=== PATIENT | male | born 1955 | race Caucasian/White ===

== ENCOUNTER 2018-12-03 10:23 | Emergency (ER) | payer BC, OTHER ==
[2018-12-03 11:02] LABS: Absolute Lymphocytes (CBC) 2.2 K/uL (0.7-4.9); Absolute Monocytes 0.6 K/uL (0.1-1.3); Absolute Neutrophil 6.5 K/uL (1.8-8.0); Basophils % 0.7 % (0-1.3); Eosinophils % 2.1 % (0-4.4); Hematocrit 45.2 % (39.6-49.0); Lymphocytes % 22.5 % (15.3-44.8); Monocytes % 6.7 % (3.3-12.3); RBC Red Blood Cell Count 4.95 M/uL (4.33-5.43)
[2018-12-03 11:16] LABS: BUN Blood Urea Nitrogen 5 mg/dL (7-18); Bicarbonate 23 mmol/L (21-32); Glucose Level 116 mg/dL (74-106); Potassium 3.5 mmol/L (3.5-5.1); Sodium Level 134 mmol/L (136-145)
[2018-12-03 11:26] LABS: Urine Blood 1+ (NEG); Urine Glucose NEGATIVE (NEG); Urine Protein TRACE (NEG); Urine Specific Gravity 1.015 (1.005-1.030)
--- NOTE | 2018-12-03 11:33 | EDPHYS ---
Physician Documentation [facility] – [place], [place] Name: Donald Powell Age: 63 yrs Sex: Male : 1955 Arrival Date: 12/03/2018 Time: 10:25 Bed 13 Private MD: ED Physician Kwadwo Le HPI: 12/03 10:43 This 63 yrs old Male presents to ER via Unassigned with complaints of Mouth rn Problem. 10:43 This 63 yrs old Male presents to ER via Unassigned with complaints of dry rn mouth. 10:43 The patient presents with dry mouth, thirsty. The problem is located in the mouth. rn Onset: The symptoms/episode began/occurred yesterday. Duration: The symptoms are continuous. Modifying factors: The symptoms are alleviated by nothing, the symptoms are aggravated by nothing. Severity of symptoms: At their worst the symptoms were moderate, in the emergency department the symptoms are unchanged. The patient has not experienced similar symptoms in the past. Reports dry mouth, increased thirst, has been trying to drink a lot of water and can't help dry mouth, no fever, no rash/lesions, reports told recently by 2 doctors that is pre-diabetic due to A1c, has been urinating a lot due to fluids, and is worried is having diabetic problem. . Historical: - Allergies: 11:20 NKDA; aj - Home Meds: 11:20 Bystolic 10 mg Oral tab 1 tab once daily [Active]; Omeprazole Oral [Active]; aj - PMHx: 11:20 GERD; Hypertension; aj - Immunization history:: Adult Immunizations up to date. - Social history:: Smoking status: Patient/guardian denies using tobacco, Patient uses alcohol, claims drinking about a 6 pack/day. - Family history:: not pertinent. - Ebola Screening: : Patient negative for fever greater than or equal to 101.5 degrees Fahrenheit, and additional compatible Ebola Virus Disease symptoms Patient denies exposure to infectious person Patient denies travel to an Ebola-affected area in the 21 days before illness onset No symptoms or risks identified at this time. - Hospitalizations: : No recent hospitalization is reported. ROS: 10:43 Constitutional: Negative for fever, chills, and weight loss, ENT: + dry mouth, no pain rn or trouble swallowing Neck: Negative for injury, pain, and swelling, Cardiovascular: Negative for chest pain, palpitations, and edema, Respiratory: Negative for shortness of breath, cough, wheezing, and pleuritic chest pain, Abdomen/GI: + decreased appetite MS/Extremity: Negative for injury and deformity, Skin: Negative for injury, rash, and discoloration, Neuro: + generalized weakness Exam: 10:43 Constitutional: This is a well developed, well nourished patient who is awake, alert, rn and in no acute distress, a little anxious Head/Face: Normocephalic, atraumatic. Eyes: Pupils equal round and reactive to light, extra-ocular motions intact. Lids and lashes normal. Conjunctiva and sclera are non-icteric and not injected. Cornea within normal limits. Periorbital areas with no swelling, redness, or edema. ENT: mild dry MM Neck: Trachea midline, no thyromegaly or masses palpated, and no cervical lymphadenopathy. Supple, full range of motion without nuchal rigidity, or vertebral point tenderness. No Meningismus. Respiratory: No increased work of breathing, no retractions or nasal flaring. Skin: Warm, dry MS/ Extremity: Pulses equal, no cyanosis. Neurovascular intact. Full, normal range of motion. Equal circumference. Neuro: Awake and alert, GCS 15, oriented to person, place, time, and situation. Cranial nerves II-XII grossly intact. Motor strength 5/5 in all extremities. Sensory grossly intact. Cerebellar exam normal. Normal gait. Vital Signs: 10:33 BP 178 / 105; Pulse 70; Resp 16; Temp 98.9; Pulse Ox 96% ; Weight 106.59 kg; Height 6 ms ft. 1 in. (185.42 cm); Pain 0/10; 10:33 Body Mass Index 31.00 (106.59 kg, 185.42 cm) ms 10:33 PT states "Zero pain it is more of an irritation." ms MDM: 10:29 Patient medically screened. rn 11:30 Differential diagnosis: dry mouth, mild ETOH withdrawal, adverse effect of benadryl rn (taking sleep medication Zquil). Data reviewed: vital signs, nurses notes, lab test result(s), and as a result, I will discharge patient. Counseling: I had a detailed discussion with the patient and/or guardian regarding: the historical points, exam findings, and any diagnostic results supporting the discharge/admit diagnosis, lab results, the need for outpatient follow up, to return to the emergency department if symptoms worsen or persist or if there are any questions or concerns that arise at home. Response to treatment: the patient's symptoms have mildly improved after treatment, and as a result, I will discharge patient. Special discussion: I discussed with the patient/guardian in detail that at this point there is no indication for admission to the hospital. It is understood, however, that if the symptoms persist or worsen the patient needs to return immediately for re-evaluation. ED course: Counseled patient regarding ETOH cessation, careful with benadryl side effects, and OTC dry mouth products. Fasting glucose 116 here, normal renal function and no ketones. Will defer monitoring to pcp.. 12/03 10:42 Order name: CBC with Diff; Complete Time: 11:21 rn 12/03 10:42 Order name: Basic Metabolic Panel; Complete Time: 11: 12/03 10:42 Order name: Ketone, Serum; Complete Time: 11: 12/03 11:08 Order name: Urine Dipstick--Ancillary (enter results); Complete Time: 11:30 12/03 10:42 Order name: IV Start; Complete Time: 10:55 rn 12/03 10:42 Order name: Urine Dipstick-Ancillary (obtain specimen); Complete Time: 11:23 rn 12/03 10:42 Order name: Glucose Level; Complete Time: 11:23 rn Administered Medications: 11:29 Drug: Valium 5 mg Route: PO; aj 12:43 Follow up: Response: Anxiety increased aj 12:44 Follow up: Response: Anxiety decreased aj 11:30 Drug: NS 0.9% 1000 ml Route: IV; Rate: 1000 ml; Site: left forearm; aj 12:44 Follow up: Response: No adverse reaction; IV Status: Completed infusion; IV Intake: aj 1000ml Point of Care Testing: Blood Glucose: 11:22 Blood Glucose: 104 mg/dL; ms Ranges: Critical Glucose Levels:Adult <50 mg/dl or >400 mg/dl <40 mg/dl or >180 mg/dl Disposition: 12/03/18 11:32 Discharged to Home. Impression: Dry mouth, unspecified. - Condition is Stable. - Discharge Instructions: Dehydration, Adult. - Medication Reconciliation Form, Thank You Letter, Antibiotic Education, Prescription Opioid Use form. - Follow up: Private Physician; When: As needed; Reason: Recheck today's complaints, Re-evaluation by your physician. - Problem is new. - Symptoms have improved. Signatures: Dispatcher [employer] EDSumi Parks RN RN aj Nieto, Roman, MD MD rn Corrections: (The following items were deleted from the chart) 10:47 10:43 Constitutional: This is a well developed, well nourished patient who is awake, rn alert, and in no acute distress, a little anxious Head/Face: Normocephalic, atraumatic. Eyes: Pupils equal round and reactive to light, extra-ocular motions intact. Lids and lashes normal. Conjunctiva and sclera are non-icteric and not injected. Cornea within normal limits. Periorbital areas with no swelling, redness, or edema. ENT: mild dry MM Neck: Trachea midline, no thyromegaly or masses palpated, and no cervical lymphadenopathy. Supple, full range of motion without nuchal rigidity, or vertebral point tenderness. No Meningismus. Skin: Warm, dry MS/ Extremity: Pulses equal, no cyanosis. Neurovascular intact. Full, normal range of motion. Equal circumference. Neuro: Awake and alert, GCS 15, oriented to person, place, time, and situation. Cranial nerves II-XII grossly intact. Motor strength 5/5 in all extremities. Sensory grossly intact. Cerebellar exam normal. Normal gait. rn 12:45 11:32 12/03/2018 11:32 Discharged to Home. Impression: Dry mouth, unspecified. aj Condition is Stable. Forms are Medication Reconciliation Form, Thank You Letter, Antibiotic Education, Prescription Opioid Use. Follow up: Private Physician; When: As needed; Reason: Recheck today's complaints, Re-evaluation by your physician. Problem is new. Symptoms have improved. rn
--- NOTE | 2018-12-03 11:33 | ER ---
Nurse's Notes [facility] Name: Donald Powell Age: 63 yrs Sex: Male : 1955 Arrival Date: 12/03/2018 Time: 10:25 Bed 13 Private MD: Diagnosis: Dry mouth, unspecified Presentation: 12/03 11:18 Presenting complaint: Patient states: Dry mouth and excessive thirst since yesterday at aj 1600. Transition of care: patient was not received from another setting of care. Onset of symptoms was December 02, 2018. Risk Assessment: Do you want to hurt yourself or someone else? Patient reports no desire to harm self or others. Initial Sepsis Screen: Does the patient meet any 2 criteria? No. Patient's initial sepsis screen is negative. Does the patient have a suspected source of infection? No. Patient's initial sepsis screen is negative. Care prior to arrival: None. 11:18 Method Of Arrival: Ambulatory 11:18 Acuity: MIGUEL ANGEL 3 aj Triage Assessment: 11:20 General: Appears in no apparent distress. comfortable, Behavior is calm, cooperative, aj appropriate for age. Pain: Denies pain. EENT: Reports dry mouth. Neuro: Level of Consciousness is awake, alert, obeys commands, Oriented to person, place, time, situation, none. Respiratory: Airway is patent Respiratory effort is even, unlabored, Respiratory pattern is regular, symmetrical. Derm: Skin is intact, is healthy with good turgor, Skin is pink, warm \\T\\ dry. normal. Historical: - Allergies: 11:20 NKDA; aj - Home Meds: 11:20 Bystolic 10 mg Oral tab 1 tab once daily [Active]; Omeprazole Oral [Active]; aj - PMHx: 11:20 GERD; Hypertension; aj - Immunization history:: Adult Immunizations up to date. - Social history:: Smoking status: Patient/guardian denies using tobacco, Patient uses alcohol, claims drinking about a 6 pack/day. - Family history:: not pertinent. - Ebola Screening: : Patient negative for fever greater than or equal to 101.5 degrees Fahrenheit, and additional compatible Ebola Virus Disease symptoms Patient denies exposure to infectious person Patient denies travel to an Ebola-affected area in the 21 days before illness onset No symptoms or risks identified at this time. - Hospitalizations: : No recent hospitalization is reported. Vital Signs: 10:33 BP 178 / 105; Pulse 70; Resp 16; Temp 98.9; Pulse Ox 96% ; Weight 106.59 kg; Height 6 ms ft. 1 in. (185.42 cm); Pain 0/10; 10:33 Body Mass Index 31.00 (106.59 kg, 185.42 cm) ms 10:33 PT states "Zero pain it is more of an irritation." ms ED Course: 10:25 Patient arrived in ED. as 10: Kwadwo Le MD is Attending Physician. rn 10:55 Initial lab(s) drawn, by vt, sent to lab. Inserted saline lock: 20 gauge in right ms forearm, using aseptic technique. Blood collected. 11:17 Sumi Bingham RN is Primary Nurse. aj 11:19 Triage completed. aj 11:20 Arm band placed on left wrist. Patient placed in an exam room. aj 12:44 No provider procedures requiring assistance completed. IV discontinued, intact, aj bleeding controlled, No redness/swelling at site. Pressure dressing applied. Administered Medications: 11:29 Drug: Valium 5 mg Route: PO; aj 12:43 Follow up: Response: Anxiety increased aj 12:44 Follow up: Response: Anxiety decreased aj 11:30 Drug: NS 0.9% 1000 ml Route: IV; Rate: 1000 ml; Site: left forearm; aj 12:44 Follow up: Response: No adverse reaction; IV Status: Completed infusion; IV Intake: aj 1000ml Point of Care Testing: Blood Glucose: 11: Blood Glucose: 104 mg/dL; ms Ranges: Intake: 12:44 IV: 1000ml; Total: 1000ml. aj Outcome: 11:32 Discharge ordered by . rn 12:45 Patient left the ED. aj Signatures: Sumi Bingham RN RN aj Martinez, Amelia as Solis, Maria ms Kwadwo Le MD MD rn
[2018-12-03] MEDS ORDERED: NA CHLORIDE 0.9% 1,000 ML ONE (11:37)
[2018-12-03] MEDS ORDERED: DIAZEPAM 5 MG TABLET ONE (11:37)
[2018-12-03 12:57] VITALS: BP 178/105; TEMP 98.9; O2SAT 96
== END 2018-12-03 12:45 | disposition home or self-care (01) ==
LOC: ER 10:23
DX: R68.2 Dry mouth, unspecified (principal); I10 Essential (primary) hypertension; K21.9 Gastro-esophageal reflux disease without esophagitis
CPT/HCPCS: 36415; 80048; 81003; 82010; 82962; 85025; J7030

== ENCOUNTER 2023-01-07 06:35 | Day surgery (SDC) | payer OTHER ==
[2023-01-06 10:09] LABS: Potassium 4.2 mEq/L (3.5-5.1)
--- NOTE | 2023-01-06 12:06 | EKG ---
Test Date: 2023-01-06 Test Time: 09:36:29 Single Pass [employer]il St[employer]izer Operator: NOELLE MEASUREMENT RESULTS: Intervals: Rate: 60 TX: 220 QRSD: 92 QT: 410 QTc: 410 [place]: P: 14 TX: 220 QRS: -59 T: 40 INTERPRETIVE STATEMENTS: Sinus rhythm with 1st degree AV block Left anterior fascicular block Cannot rule out Inferior infarct (masked by fascicular block?), age undetermined Cannot rule out Anterior infarct, age undetermined Abnormal ECG Compared to ECG 11/06/2015 15:53:24 First degree AV block now present Left anterior fascicular block now present Myocardial infarct finding now present Left-axis deviation no longer present Electronically Signed On 01-06-23 12:05:45 CDT by Vikram Balderas
[2023-01-07] MEDS ORDERED: Ringers Lactate 1,000 ML IV ONE (06:49)
[2023-01-07] MEDS ORDERED: propofoL 200 MG/20 ML VIAL IV ONE ×3 (07:40→08:20)
[2023-01-07] MEDS ORDERED: LIDOCAINE 1% MPF 30 ML VIAL ONE (07:40)
[2023-01-07 10:14] VITALS: O2SAT 99
[2023-01-07 10:15] VITALS: BP 120/82; TEMP 97
== END 2023-01-07 09:42 | disposition home or self-care (01) ==
LOC: OR 06:35
PROVIDERS: ATTEND Surgery
PROC: 0DB68ZX Excision of Stomach, Via Natural or Artificial Opening Endoscopic, Diagnostic (ICD-10-PCS; 2023-01-07)
PROC: 0DBK8ZX Excision of Ascending Colon, Via Natural or Artificial Opening Endoscopic, Diagnostic (ICD-10-PCS; 2023-01-07)
PROC: 0DBL8ZX Excision of Transverse Colon, Via Natural or Artificial Opening Endoscopic, Diagnostic (ICD-10-PCS; 2023-01-07)
PROC: 0DBN8ZX Excision of Sigmoid Colon, Via Natural or Artificial Opening Endoscopic, Diagnostic (ICD-10-PCS; 2023-01-07)
PROC: 0DBM8ZX Excision of Descending Colon, Via Natural or Artificial Opening Endoscopic, Diagnostic (ICD-10-PCS; 2023-01-07)
PROC: 0DBH8ZX Excision of Cecum, Via Natural or Artificial Opening Endoscopic, Diagnostic (ICD-10-PCS; 2023-01-07)
PROC: 0DB98ZX Excision of Duodenum, Via Natural or Artificial Opening Endoscopic, Diagnostic (ICD-10-PCS; principal; 2023-01-07 08:00)
PROC: 0DB78ZX Excision of Stomach, Pylorus, Via Natural or Artificial Opening Endoscopic, Diagnostic (ICD-10-PCS; 2023-01-07 08:00)
DX: K22.2 Esophageal obstruction (principal); Z12.11 Encounter for screening for malignant neoplasm of colon; K29.30 Chronic superficial gastritis without bleeding; K29.60 Other gastritis without bleeding; R13.10 Dysphagia, unspecified; K21.9 Gastro-esophageal reflux disease without esophagitis; Z87.19 Personal history of other diseases of the digestive system; D12.2 Benign neoplasm of ascending colon; D12.0 Benign neoplasm of cecum; D12.4 Benign neoplasm of descending colon; D12.5 Benign neoplasm of sigmoid colon; D12.3 Benign neoplasm of transverse colon
CPT/HCPCS: 93005; 80048; 36415; 88312; 88305; 43239; 43249; 45385; J2704 ×3; J2001; J7120; C1726

== ENCOUNTER 2025-05-10 09:14 | Day surgery (SDC) | payer OTHER ==
[2025-05-07 15:44] LABS: Absolute Lymphocytes (CBC) 2.2 K/uL (0.7-4.9); Hematocrit 42.9 % (39.6-49.0); Hemoglobin 14.2 g/dL (13.6-17.9); MCH 29.8 pg (27.0-35.0); MCHC 33.1 g/dL (32.0-36.0); MCV 89.9 fL (80-100); MPV 8.6 fL (7.6-11.3); Nucleated RBC Absolute Count 0.0 (0-0); Nucleated Red Blood Cells % 0.0 % (0-0); RBC Red Blood Cell Count 4.78 M/uL (4.33-5.43); White Blood Count 9.00 thou/uL (4.3-10.9)
[2025-05-07 16:06] LABS: Anion Gap 8.7 mEq/L (5.0-15.0); BUN Blood Urea Nitrogen 21.0 mg/dL (7-18); Glucose Level 101.0 mg/dL (74-106); Potassium 3.7 mEq/L (3.5-5.1)
[2025-05-10] MEDS: Ringers Lactate 1,000 ML IV ONE (09:47)
[2025-05-10] MEDS ORDERED: FENTANYL CITR 100 MCG/2 ML ONE (11:00)
[2025-05-10] MEDS ORDERED: LIDOCAINE 1% MPF 5 ML VIAL ONE (11:00)
[2025-05-10] MEDS ORDERED: EPHEDRINE SULF 50 MG/ML VIAL ONE (11:46)
[2025-05-10 14:42] VITALS: BP 133/76; TEMP 97.1; O2SAT 96
== END 2025-05-10 13:10 | disposition home or self-care (01) ==
LOC: OR 09:14
PROVIDERS: ATTEND Surgery
PROC: 0DBH8ZX Excision of Cecum, Via Natural or Artificial Opening Endoscopic, Diagnostic (ICD-10-PCS; 2025-05-10)
PROC: 0DB98ZX Excision of Duodenum, Via Natural or Artificial Opening Endoscopic, Diagnostic (ICD-10-PCS; 2025-05-10)
PROC: 0DB78ZX Excision of Stomach, Pylorus, Via Natural or Artificial Opening Endoscopic, Diagnostic (ICD-10-PCS; 2025-05-10)
PROC: 0DBQ8ZX Excision of Anus, Via Natural or Artificial Opening Endoscopic, Diagnostic (ICD-10-PCS; principal; 2025-05-10 11:30)
PROC: 0DBM8ZX Excision of Descending Colon, Via Natural or Artificial Opening Endoscopic, Diagnostic (ICD-10-PCS; 2025-05-10 11:30)
DX: Z12.11 Encounter for screening for malignant neoplasm of colon (principal); K22.2 Esophageal obstruction; N42.9 Disorder of prostate, unspecified; K64.8 Other hemorrhoids; K29.50 Unspecified chronic gastritis without bleeding
CPT/HCPCS: 85025; 80048; 36415; 88312; 88305; 45380; 43239; J2704 ×2; J2003; J3010; J7120; C1726